=== PATIENT | female | born 1950 | race African-American/Black ===

== ENCOUNTER 2018-09-24 16:35 | Emergency (ER) | payer MEDICARE, MEDICAID ==
[~2018-09-24] VITALS: Ht 162.6 cm; Wt 119.0 kg
[~2018-09-24 16:35] MED LIST: CARV6.2548 PO; CHOL100044 PO; CLON0.3T PO; FURO40TA5 PO; HYDR12.54 PO; LEVO100T9 PO; LOSA50TA20 PO; MONT10TA21 PO; PARO-41 PO
[2018-09-24] MEDS ORDERED: ASPIRIN 81MG TABLET PO ONE (19:30)
[2018-09-24] MEDS ORDERED: MAGNESIUM/ALUMINUM HYDROXIDE/SIMETHICONE 30ML UDC PO ONE (19:30)
[2018-09-24] MEDS ORDERED: VISCOUS LIDOCAINE 2% 15 ML UDC PO ONE (19:30)
[2018-09-24 20:26] LABS: BASOPHILS % 0.9 % (0.0-2.0); EOSINOPHILS % 3.1 % (0.0-5.0); HEMATOCRIT. 33.5 % (36.0-48.0); HEMOGLOBIN. 10.7 g/dL (12.0-16.0); MEAN CORPUSCULAR HEMOGLOBIN 26.3 pg (28.0-32.0); MEAN CORPUSCULAR VOLUME 82.6 fL (81.0-99.0); MEAN PLATELET VOLUME 7.7 fl (7.4-10.4); MONOCYTES % 13.5 % (2.0-8.0); NEUTROPHILS % 57.5 % (40.0-76.0); PLATELET 226 x1000/uL (130-400); RED BLOOD CELL COUNT 4.05 mill/uL (4.2-5.4)
[2018-09-24 20:32] LABS: CHLORIDE 87 mEq/L (98-107)
[2018-09-24 23:21] VITALS: BP 123/71
== END 2018-09-24 23:47 | disposition home or self-care (01) ==
LOC: ER 16:35
DX: R07.2 Precordial pain (principal); E87.1 Hypo-osmolality and hyponatremia
CPT/HCPCS: 36415; 71045; 83880; 84484; 93005; 99284

== ENCOUNTER 2018-11-05 04:16 | Emergency (ER) | payer MEDICARE, MEDICAID ==
[~2018-11-05] VITALS: Ht 167.6 cm; Wt 109.0 kg
[2018-11-05 08:19] LABS: BASOPHILS % 0.7 % (0.0-2.0); EOSINOPHILS % 8.5 % (0.0-5.0); HEMATOCRIT. 37.3 % (36.0-48.0); HEMOGLOBIN. 11.8 g/dL (12.0-16.0); LYMPHOCYTES % 19.4 % (20.0-50.0); MEAN CORPUSCULAR HEMOGLOBIN 25.7 pg (28.0-32.0); MEAN PLATELET VOLUME 7.6 fl (7.4-10.4); NEUTROPHILS % 58.4 % (40.0-76.0); PLATELET 259 x1000/uL (130-400); RED BLOOD CELL COUNT 4.61 mill/uL (4.2-5.4); RED CELL DISTRIBUTION WIDTH 17.1 % (11.6-14.6)
[2018-11-05 08:23] LABS: CHLORIDE 86 mEq/L (98-107)
[2018-11-05 08:26] LABS: CLARITY URINE CLEAR (CLEAR); COLOR URINE YELLOW (YELLOW); KETONES URINE NEGATIVE (NEGATIVE); LEUKOCYTE ESTERASE URINE NEGATIVE (NEGATIVE); NITRITE URINE NEGATIVE (NEGATIVE); OCCULT BLOOD URINE NEGATIVE (NEGATIVE); PROTEIN URINE NEGATIVE (NEGATIVE); SPECIFIC GRAVITY URINE 1.005 (1.005-1.030); UROBILINOGEN URINE 0.2 E.U./dL (0.2-1.0)
[2018-11-05 08:29] LABS: ETHANOL BLOOD < 10 mg/dL
[2018-11-05 08:41] LABS: *BARBITURATES SCREEN URINE NEGATIVE (NEGATIVE); *BENZODIAZEPINES SCREEN URINE NEGATIVE (NEGATIVE); CANNABINOID URINE SCREEN NEGATIVE (NEGATIVE); OPIATES URINE SCREEN PRESUMTIVE POSITIVE (NEGATIVE); PHENCYCLIDINE URINE SCREEN NEGATIVE (NEGATIVE)
[2018-11-05 08:42] LABS: *AMPHETAMINES SCREEN URINE NEGATIVE (NEGATIVE); *COCAINE SCREEN URINE NEGATIVE (NEGATIVE)
[2018-11-05 08:44] LABS: METHADONE URINE SCREEN PRESUMTIVE POSITIVE (NEGATIVE)
[2018-11-05] MEDS: ALBUTEROL (0.083%) 2.5MG/3ML NEB HHN STA (10:10)
[2018-11-05] MEDS: IPRATROPIUM BROMIDE (0.02%) 0.5MG/2.5ML NEB HHN STA (10:10)
[2018-11-05] MEDS: POTASSIUM CHLORIDE 20MEQ TABLET SR PO ONE (10:49)
[2018-11-05] MEDS: ASPIRIN 81MG TABLET PO ONE (10:49)
[2018-11-05] MEDS: METHYLPREDNISOLONE SOD SUCC 125 MG/2 ML VIAL IV STA (10:49)
[2018-11-05 12:44] VITALS: BP 132/76
== END 2018-11-05 12:45 | disposition home or self-care (01) ==
LOC: ER 04:16
DX: K80.20 Calculus of gallbladder without cholecystitis without obstruction (principal); J44.1 Chronic obstructive pulmonary disease with (acute) exacerbation; Z96.659 Presence of unspecified artificial knee joint; Z98.51 Tubal ligation status; I11.0 Hypertensive heart disease with heart failure; I50.9 Heart failure, unspecified
CPT/HCPCS: 36415; 71045; 74176; 80053; 80305; 80320; 81003; 83690; 83880; 84484; 85025; 93005; 94644; 96374; 99285; J2930; J7611; G0480

== ENCOUNTER 2018-11-12 15:02 | Inpatient (IN) | payer MEDICARE, MEDICAID ==
[~2018-11-12] VITALS: Ht 162.6 cm; Wt 110.9 kg
[2018-11-12] MEDS ORDERED: CEFTRIAXONE 1 G PREMIX 50 ML IV ONE (15:45)
[2018-11-12] MEDS ORDERED: SODIUM CHLORIDE 0.9% 1000ML BAG (SEPSIS BOLUS) IV ONE (15:45)
[2018-11-12 16:13] LABS: BASOPHILS % 1.3 % (0.0-2.0); EOSINOPHILS % 7.5 % (0.0-5.0); HEMOGLOBIN. 11.2 g/dL (12.0-16.0); LYMPHOCYTES % 20.8 % (20.0-50.0); MEAN CORPUSCULAR HEMOGLOBIN 25.8 pg (28.0-32.0); MEAN CORPUSCULAR VOLUME 80.3 fL (81.0-99.0); MEAN PLATELET VOLUME 8.2 fl (7.4-10.4); MONOCYTES % 12.9 % (2.0-8.0); NEUTROPHILS % 57.5 % (40.0-76.0); PLATELET 236 x1000/uL (130-400); RED BLOOD CELL COUNT 4.36 mill/uL (4.2-5.4); RED CELL DISTRIBUTION WIDTH 17.1 % (11.6-14.6)
[2018-11-12 16:20] LABS: CHLORIDE 89 mEq/L (98-107)
[2018-11-12 16:22] LABS: PROTHROMBIN TIME 10.2 sec (9.6-11.0)
[2018-11-12 16:24] LABS: ETHANOL BLOOD < 10 mg/dL
[2018-11-12 17:14] LABS: CLARITY URINE CLEAR (CLEAR); COLOR URINE YELLOW (YELLOW); KETONES URINE NEGATIVE (NEGATIVE); LEUKOCYTE ESTERASE URINE NEGATIVE (NEGATIVE); NITRITE URINE NEGATIVE (NEGATIVE); OCCULT BLOOD URINE 2+ (NEGATIVE); PH URINE 7.5 (4.5-8.0); PROTEIN URINE NEGATIVE (NEGATIVE); SPECIFIC GRAVITY URINE 1.004 (1.005-1.030); UROBILINOGEN URINE 0.2 E.U./dL (0.2-1.0)
[2018-11-12 17:47] LABS: *BARBITURATES SCREEN URINE NEGATIVE (NEGATIVE); *BENZODIAZEPINES SCREEN URINE NEGATIVE (NEGATIVE)
[2018-11-12 17:49] LABS: *AMPHETAMINES SCREEN URINE NEGATIVE (NEGATIVE); *COCAINE SCREEN URINE NEGATIVE (NEGATIVE); CANNABINOID URINE SCREEN NEGATIVE (NEGATIVE); OPIATES URINE SCREEN PRESUMTIVE POSITIVE (NEGATIVE); PHENCYCLIDINE URINE SCREEN NEGATIVE (NEGATIVE)
[2018-11-12 17:50] LABS: METHADONE URINE SCREEN PRESUMTIVE POSITIVE (NEGATIVE)
[2018-11-12 20:10] VITALS: BP 116/67
[2018-11-12 20:30] VITALS: BP 116/67
[2018-11-12] MEDS ORDERED: DOCUSATE SODIUM 100MG CAPSULE PO PRN (21:45)
[2018-11-12] MEDS ORDERED: CLONIDINE 0.1MG TABLET PO PRN (21:45)
[2018-11-12] MEDS ORDERED: ONDANSETRON HCL 4MG/2ML INJ IV PRN (21:45)
[2018-11-12] MEDS ORDERED: NA PHOS,M-B/NA PHOS,DI-BA ENEMA 118ML PR PRN (21:45)
[2018-11-12] MEDS ORDERED: DIPHENHYDRAMINE 50MG/ML VIAL IV PRN (21:45)
[2018-11-12] MEDS ORDERED: POTASSIUM CHLORIDE 20MEQ TABLET SR PO SCH (22:15)
[2018-11-12] MEDS: ENOXAPARIN 40MG/0.4ML SYR SUBCUT SCH (22:20)
[2018-11-12] MEDS: ACETAMINOPHEN 325MG TABLET PO PRN (22:27)
[2018-11-13] VITALS: BP 123/60
[2018-11-13] MEDS ORDERED: BUSP-29 PO (01:03)
[2018-11-13] MEDS: DEXT 5%/0.45% NACL 1000ML 1,000 ML IV SCH ×3 (02:33→23:28)
[2018-11-13 04:00] VITALS: BP 130/85
[2018-11-13 07:50] LABS: BASOPHILS % 1.1 % (0.0-2.0); EOSINOPHILS % 9.3 % (0.0-5.0); HEMATOCRIT. 36.7 % (36.0-48.0); HEMOGLOBIN. 11.8 g/dL (12.0-16.0); LYMPHOCYTES % 23.6 % (20.0-50.0); MEAN CORPUSCULAR HEMOGLOBIN 25.9 pg (28.0-32.0); MEAN CORPUSCULAR VOLUME 80.6 fL (81.0-99.0); MEAN PLATELET VOLUME 8.1 fl (7.4-10.4); MONOCYTES % 12.1 % (2.0-8.0); NEUTROPHILS % 53.9 % (40.0-76.0); PLATELET 228 x1000/uL (130-400); RED BLOOD CELL COUNT 4.55 mill/uL (4.2-5.4)
[2018-11-13 08:00] VITALS: BP 103/46
[2018-11-13 08:04] LABS: CHLORIDE 92 mEq/L (98-107)
[2018-11-13 08:20] LABS: PHOSPHORUS 3.7 mg/dL (2.5-4.9)
[2018-11-13] MEDS: TRAMADOL 50MG TABLET PO PRN ×2 (09:22→20:38)
[2018-11-13 11:57] VITALS: BP 112/72
[2018-11-13] MEDS: ACETAMINOPHEN 325MG TABLET PO PRN (14:52)
[2018-11-13 16:00] VITALS: BP 132/74
[2018-11-13 16:54] LABS: FOLIC ACID (FOLATE) SERUM 11.2 ng/mL (>5.38)
[2018-11-13 20:00] VITALS: BP_SYST 148; BP_SYST 160; BP_SYST 97; BP_DIAS 64; BP_DIAS 88; BP_DIAS 90
[2018-11-13] MEDS ORDERED: RISPERIDONE 1MG TABLET PO SCH (21:00)
[2018-11-13] MEDS: ENOXAPARIN 40MG/0.4ML SYR SUBCUT SCH (23:28)
[2018-11-14] VITALS: BP 101/68
[2018-11-14 04:00] VITALS: BP 130/76
[2018-11-14 07:05] LABS: HEMATOCRIT. 33.2 % (36.0-48.0); HEMOGLOBIN. 10.9 g/dL (12.0-16.0); MEAN CORPUSCULAR HEMOGLOBIN 26.4 pg (28.0-32.0); MEAN CORPUSCULAR VOLUME 80.4 fL (81.0-99.0); MEAN PLATELET VOLUME 8.7 fl (7.4-10.4); PLATELET 215 x1000/uL (130-400); RED BLOOD CELL COUNT 4.13 mill/uL (4.2-5.4); RED CELL DISTRIBUTION WIDTH 16.9 % (11.6-14.6)
[2018-11-14 07:24] LABS: CHLORIDE 92 mEq/L (98-107)
[2018-11-14 08:00] VITALS: BP_SYST 128; BP_SYST 148; BP_SYST 165; BP_DIAS 110; BP_DIAS 86; BP_DIAS 87
[2018-11-14] MEDS ORDERED: RISPERIDONE 1MG TABLET PO SCH (09:00)
[2018-11-14] MEDS ORDERED: MELOXICAM 7.5MG TABLET PO SCH (09:00)
[2018-11-14 10:58] LABS: PLATELET ESTIMATE NORMAL
[2018-11-14 11:34] VITALS: BP 123/81
[2018-11-14 12:00] VITALS: BP 123/81
== END 2018-11-14 14:30 | disposition home health service (06) | DRG 73 ==
LOC: ER 15:02 → EDBEDREQ 17:15 → EDBEDREQTM 17:15 → 8WST 18:36 → ENRESERV 18:53
PROVIDERS: ADMIT Internal Medicine Nephrology; ATTEND Internal Medicine Nephrology
DX: G90.8 Other disorders of autonomic nervous system (principal); G92 Toxic encephalopathy; E87.1 Hypo-osmolality and hyponatremia; I50.20 Unspecified systolic (congestive) heart failure; F20.0 Paranoid schizophrenia; Z68.41 Body mass index [BMI] 40.0-44.9, adult; W18.30XA Fall on same level, unspecified, initial encounter; E87.6 Hypokalemia; J44.9 Chronic obstructive pulmonary disease, unspecified; E66.01 Morbid (severe) obesity due to excess calories; I73.9 Peripheral vascular disease, unspecified; G89.4 Chronic pain syndrome; S09.90XA Unspecified injury of head, initial encounter; H57.89 Other specified disorders of eye and adnexa; D64.9 Anemia, unspecified; S00.83XA Contusion of other part of head, initial encounter; R73.9 Hyperglycemia, unspecified; W18.39XA Other fall on same level, initial encounter; M15.9 Polyosteoarthritis, unspecified; I95.9 Hypotension, unspecified; I11.0 Hypertensive heart disease with heart failure; Z79.899 Other long term (current) drug therapy; Z87.891 Personal history of nicotine dependence; Z90.711 Acquired absence of uterus with remaining cervical stump; Y93.89 Activity, other specified; Y92.89 Other specified places as the place of occurrence of the external cause; Y99.8 Other external cause status; Z90.710 Acquired absence of both cervix and uterus
CPT/HCPCS: 36415; 71045; 72170; 80048; 80305; 80320; 82140; 82746; 82962; 83036; 83605; 83735; 84100; 84145; 84443; 84484; 93306; 93880; 93970; 97162; 97166; 97535; 99285; C1893; J1650; J7030; G0480

== ENCOUNTER 2018-11-20 01:55 | Emergency (ER) | payer MEDICARE, MEDICAID ==
[~2018-11-20] VITALS: Ht 172.7 cm; Wt 118.0 kg
[~2018-11-20 01:55] MED LIST changes: +BUSP-29 PO
[2018-11-20] MEDS: KETOROLAC 30MG/ML VIAL IM NR (04:37)
[2018-11-20] MEDS: ACETAMINOPHEN WITH CODEINE 300/30MG TABLET PO ONE (07:50)
[2018-11-20 11:20] VITALS: BP 140/88
== END 2018-11-20 11:59 | disposition home or self-care (01) ==
LOC: ER 01:55
DX: M25.512 Pain in left shoulder (principal); M19.012 Primary osteoarthritis, left shoulder; M19.90 Unspecified osteoarthritis, unspecified site
CPT/HCPCS: 73030; 96372; 99283; J1885

== ENCOUNTER 2018-12-19 08:44 | Emergency (ER) | payer MEDICARE, MEDICAID ==
[~2018-12-19] VITALS: Ht 170.2 cm; Wt 120.0 kg
[~2018-12-19 08:44] MED LIST changes: -CARV6.2548 PO; -CLON0.3T PO; -HYDR12.54 PO; -LOSA50TA20 PO
[2018-12-19 09:47] LABS: BASOPHILS % 1.4 % (0.0-2.0); HEMATOCRIT. 30.5 % (36.0-48.0); HEMOGLOBIN. 10.3 g/dL (12.0-16.0); LYMPHOCYTES % 16.4 % (20.0-50.0); MEAN CORPUSCULAR VOLUME 80.3 fL (81.0-99.0); MEAN PLATELET VOLUME 7.8 fl (7.4-10.4); MONOCYTES % 12.7 % (2.0-8.0); NEUTROPHILS % 63.5 % (40.0-76.0); PLATELET 285 x1000/uL (130-400); RED CELL DISTRIBUTION WIDTH 17.9 % (11.6-14.6)
[2018-12-19 09:56] LABS: CHLORIDE 98 mEq/L (98-107)
[2018-12-19 11:28] VITALS: BP 171/80
== END 2018-12-19 11:41 | disposition home or self-care (01) ==
LOC: ER 08:44
DX: M79.18 Myalgia, other site (principal); I11.0 Hypertensive heart disease with heart failure; I50.9 Heart failure, unspecified
CPT/HCPCS: 36415; 99283

== ENCOUNTER 2019-04-07 19:19 | Inpatient (IN) | payer MEDICARE, MEDICAID ==
[~2019-04-07] VITALS: Ht 165.1 cm; Wt 119.7 kg
[2019-04-07] MEDS ORDERED: IPRATROPIUM BROMIDE (0.02%) 0.5MG/2.5ML NEB HHN ONE (23:45)
[2019-04-07] MEDS ORDERED: ALBUTEROL (0.083%) 2.5MG/3ML NEB HHN ONE (23:45)
[2019-04-07] MEDS ORDERED: METHYLPREDNISOLONE SOD SUCC 125 MG/2 ML VIAL IV ONE (23:45)
[2019-04-08] VITALS (11 sets, daily range): BP systolic 104–149; BP diastolic 57–96
[2019-04-08 00:27] LABS: EOSINOPHILS % 3.8 % (0.0-5.0); HEMATOCRIT. 35.7 % (36.0-48.0); HEMOGLOBIN. 11.3 g/dL (12.0-16.0); LYMPHOCYTES % 19.8 % (20.0-50.0); MEAN CORPUSCULAR HEMOGLOBIN 25.3 pg (28.0-32.0); MEAN CORPUSCULAR VOLUME 79.6 fL (81.0-99.0); MEAN PLATELET VOLUME 7.9 fl (7.4-10.4); MONOCYTES % 12.5 % (2.0-8.0); NEUTROPHILS % 62.9 % (40.0-76.0); PLATELET 234 x1000/uL (130-400); RED BLOOD CELL COUNT 4.48 mill/uL (4.2-5.4); RED CELL DISTRIBUTION WIDTH 18.3 % (11.6-14.6)
[2019-04-08 00:29] LABS: CHLORIDE 90 mEq/L (98-107)
[2019-04-08 02:09] LABS: BG BASE EXCESS 10.6 mmol/L (-2.0-2.0); BG CARBOXYHEMOGLOBIN 0.7 % (0.5-1.5); BG DEOXYHEMOGLOBIN 7.9 % (0.0-5.0); BG FRACTION INSPIRED OXYGEN 36; BG HCO3 ACT 40.6 mmol/L (22.0-26.0); BG METHEMOGLOBIN 0.2 % (0.0-1.5); BG OXYHEMOGLOBIN 91.2 % (94.0-97.0); BG PCO2 88.3 mmHg (35.0-45.0); BG PO2 71.7 mmHg (75.0-100.0); BG SAMPLE SITE RIGHT RADIAL; BG TOTAL HEMOGLOBIN 12.1 g/dL (12.0-18.0); BG VENT MODE NASAL CANNULA
[2019-04-08] MEDS ORDERED: ALBUTEROL (0.083%) 2.5MG/3ML NEB HHN NR (02:15)
[2019-04-08] MEDS ORDERED: IPRATROPIUM BROMIDE (0.02%) 0.5MG/2.5ML NEB HHN NR (02:15)
[2019-04-08] MEDS ORDERED: NITROGLYCERIN OINT 1GM/INCH UDPKT TD NR (02:30)
[2019-04-08] MEDS ORDERED: MAGNESIUM 2 G PREMIX 50 ML IV NR (02:30)
[2019-04-08] MEDS ORDERED: CLONIDINE 0.2MG TABLET PO NR (02:30)
[2019-04-08] MEDS ORDERED: NITR9CAP PO (05:44)
[2019-04-08] MEDS ORDERED: METH10OR11 PO (05:44)
[2019-04-08] MEDS ORDERED: FURO-151 MT (05:44)
[2019-04-08] MEDS ORDERED: BUSP7.5T6 MT (05:44)
[2019-04-08] MEDS ORDERED: METO5TAB69 MT (05:44)
[2019-04-08] MEDS ORDERED: POTA10TA11 MT (05:44)
[2019-04-08] MEDS ORDERED: MIRT7.5T11 PO (05:44)
[2019-04-08] MEDS ORDERED: METHYLPREDNISOLONE SOD SUCC 40 MG/ML VIAL IV SCH (06:00)
[2019-04-08] MEDS ORDERED: POTASSIUM CHLORIDE 20MEQ TABLET SR PO NR (06:00)
[2019-04-08] MEDS ORDERED: IPRATROPIUM BROMIDE (0.02%) 0.5MG/2.5ML NEB HHN SCH (08:00)
[2019-04-08] MEDS ORDERED: CLONIDINE 0.1MG TABLET PO PRN (08:30)
[2019-04-08] MEDS ORDERED: ACETAMINOPHEN 325MG TABLET PO PRN (08:30)
[2019-04-08] MEDS ORDERED: ONDANSETRON HCL 4MG/2ML INJ IV PRN (08:30)
[2019-04-08 08:34] LABS: BASOPHILS % 0.3 % (0.0-2.0); EOSINOPHILS % 0.1 % (0.0-5.0); HEMATOCRIT. 33.1 % (36.0-48.0); HEMOGLOBIN. 10.5 g/dL (12.0-16.0); LYMPHOCYTES % 9.7 % (20.0-50.0); MEAN CORPUSCULAR HEMOGLOBIN 25.2 pg (28.0-32.0); MEAN CORPUSCULAR VOLUME 79.3 fL (81.0-99.0); MEAN PLATELET VOLUME 8.3 fl (7.4-10.4); MONOCYTES % 2.4 % (2.0-8.0); NEUTROPHILS % 87.5 % (40.0-76.0); PLATELET 222 x1000/uL (130-400); RED BLOOD CELL COUNT 4.17 mill/uL (4.2-5.4)
[2019-04-08 08:37] LABS: CHLORIDE 90 mEq/L (98-107)
[2019-04-08 08:39] LABS: BG BASE EXCESS 6.8 mmol/L (-2.0-2.0); BG BILEVEL POS AIRWAY PRESSURE 15/5; BG CARBOXYHEMOGLOBIN 0.4 % (0.5-1.5); BG DEOXYHEMOGLOBIN 4.2 % (0.0-5.0); BG FRACTION INSPIRED OXYGEN 40; BG HCO3 ACT 36.7 mmol/L (22.0-26.0); BG METHEMOGLOBIN 0.9 % (0.0-1.5); BG OXYGEN SATURATION 95.7 % (92.0-98.5); BG OXYHEMOGLOBIN 94.5 % (94.0-97.0); BG PCO2 81.1 mmHg (35.0-45.0); BG PH 7.273 (7.350-7.450); BG SAMPLE SITE RIGHT RADIAL; BG TOTAL HEMOGLOBIN 13.5 g/dL (12.0-18.0); BG VENT MODE MASK - BIPAP; BG VENT RATE 14 set
[2019-04-08] MEDS: LEVOTHYROXINE SODIUM 100MCG TABLET PO SCH ×2 (08:56→11:00)
[2019-04-08] MEDS: FUROSEMIDE 40MG/4ML VIAL IVP SCH (08:56)
[2019-04-08] MEDS: ENOXAPARIN 30MG/0.3ML SYR SUBCUT SCH ×2 (08:57→21:31)
[2019-04-08] MEDS: IPRATROPIUM/ALBUTEROL 0.5-3(2.5)MG/3ML NEB HHN SCH ×4 (09:19→20:23)
[2019-04-08] MEDS: DEXT 5% WATER + KCL 20MEQ/L 1,000 ML IV SCH (09:30)
[2019-04-08] MEDS: LEVOFLOXACIN 250MG PREMIX 50 ML IV SCH (10:00)
[2019-04-08] MEDS: BUSPIRONE HCL 5MG TABLET PO SCH ×2 (11:00→21:31)
[2019-04-08] MEDS: PAROXETINE HCL 10MG TABLET PO SCH (11:00)
[2019-04-08 12:57] LABS: BG BASE EXCESS 10.9 mmol/L (-2.0-2.0); BG BILEVEL POS AIRWAY PRESSURE ST=18/5; BG CARBOXYHEMOGLOBIN 0.3 % (0.5-1.5); BG DEOXYHEMOGLOBIN 9.7 % (0.0-5.0); BG FRACTION INSPIRED OXYGEN 35; BG HCO3 ACT 39.5 mmol/L (22.0-26.0); BG METHEMOGLOBIN 0.2 % (0.0-1.5); BG OXYGEN SATURATION 90.3 % (92.0-98.5); BG OXYHEMOGLOBIN 89.8 % (94.0-97.0); BG PCO2 78.7 mmHg (35.0-45.0); BG PH 7.318 (7.350-7.450); BG PO2 63.8 mmHg (75.0-100.0); BG PRESSURE SUPPORT 13; BG SAMPLE SITE RIGHT RADIAL; BG TOTAL HEMOGLOBIN 10.7 g/dL (12.0-18.0); BG VENT MODE MASK - BIPAP; BG VENT RATE 20 set
[2019-04-08 13:33] LABS: *AMPHETAMINES SCREEN URINE NEGATIVE (NEGATIVE); *BARBITURATES SCREEN URINE NEGATIVE (NEGATIVE); *BENZODIAZEPINES SCREEN URINE NEGATIVE (NEGATIVE); *COCAINE SCREEN URINE NEGATIVE (NEGATIVE); CANNABINOID URINE SCREEN NEGATIVE (NEGATIVE); PHENCYCLIDINE URINE SCREEN NEGATIVE (NEGATIVE)
[2019-04-08 13:34] LABS: OPIATES URINE SCREEN PRESUMTIVE POSITIVE (NEGATIVE)
[2019-04-08 13:39] LABS: METHADONE URINE SCREEN PRESUMTIVE POSITIVE (NEGATIVE)
[2019-04-08] MEDS: METHYLPREDNISOLONE SOD SUCC 40 MG/ML VIAL IV SCH ×2 (14:20→22:45)
[2019-04-08] MEDS: MONTELUKAST SODIUM 10MG TABLET PO SCH (17:00)
[2019-04-08] MEDS: PANTOPRAZOLE SODIUM 40 MG/VIAL IV SCH (21:30)
[2019-04-08] MEDS: AMLODIPINE 5MG TABLET PO SCH (21:31)
[2019-04-09] VITALS (12 sets, daily range): BP systolic 99–150; BP diastolic 51–85
[2019-04-09] MEDS: IPRATROPIUM/ALBUTEROL 0.5-3(2.5)MG/3ML NEB HHN SCH ×6 (00:02→20:09)
[2019-04-09] MEDS: HYDROCODONE/ACETAMINOPHEN 5/325MG TABLET PO PRN ×2 (03:42→21:46)
[2019-04-09] MEDS: METHYLPREDNISOLONE SOD SUCC 40 MG/ML VIAL IV SCH ×3 (06:26→21:46)
[2019-04-09] MEDS: LEVOTHYROXINE SODIUM 100MCG TABLET PO SCH (06:26)
[2019-04-09 07:03] LABS: HEMATOCRIT. 28.5 % (36.0-48.0); HEMOGLOBIN. 9.1 g/dL (12.0-16.0); MEAN CORPUSCULAR HEMOGLOBIN 25.2 pg (28.0-32.0); MEAN CORPUSCULAR VOLUME 78.5 fL (81.0-99.0); MEAN PLATELET VOLUME 8.4 fl (7.4-10.4); PLATELET 232 x1000/uL (130-400); RED BLOOD CELL COUNT 3.63 mill/uL (4.2-5.4); RED CELL DISTRIBUTION WIDTH 17.9 % (11.6-14.6)
[2019-04-09 07:29] LABS: CHLORIDE 89 mEq/L (98-107)
[2019-04-09] MEDS: PANTOPRAZOLE SODIUM 40 MG/VIAL IV SCH (08:23)
[2019-04-09] MEDS: PAROXETINE HCL 10MG TABLET PO SCH (08:23)
[2019-04-09] MEDS: BUSPIRONE HCL 5MG TABLET PO SCH ×2 (08:23→20:34)
[2019-04-09] MEDS: FUROSEMIDE 40MG/4ML VIAL IVP SCH (08:23)
[2019-04-09] MEDS: AMLODIPINE 5MG TABLET PO SCH ×2 (08:24→20:34)
[2019-04-09] MEDS: ENOXAPARIN 30MG/0.3ML SYR SUBCUT SCH ×2 (08:25→20:34)
[2019-04-09] MEDS: LEVOFLOXACIN 250MG PREMIX 50 ML IV SCH (10:30)
[2019-04-09 13:01] LABS: PLATELET ESTIMATE NORMAL
[2019-04-09] MEDS: METHADONE HCL 10MG TABLET PO SCH (13:44)
[2019-04-09] MEDS: DEXT 5% WATER + KCL 20MEQ/L 1,000 ML IV SCH (17:46)
[2019-04-09] MEDS: MONTELUKAST SODIUM 10MG TABLET PO SCH (17:46)
[2019-04-10] VITALS (12 sets, daily range): BP systolic 97–151; BP diastolic 60–97
[2019-04-10] MEDS: IPRATROPIUM/ALBUTEROL 0.5-3(2.5)MG/3ML NEB HHN SCH ×6 (00:24→20:28)
[2019-04-10] MEDS: HYDROCODONE/ACETAMINOPHEN 5/325MG TABLET PO PRN ×2 (04:56→21:36)
[2019-04-10] MEDS: LEVOTHYROXINE SODIUM 100MCG TABLET PO SCH (04:57)
[2019-04-10] MEDS: METHYLPREDNISOLONE SOD SUCC 40 MG/ML VIAL IV SCH ×3 (04:57→21:23)
[2019-04-10 06:27] LABS: HEMOGLOBIN. 10.3 g/dL (12.0-16.0); MEAN CORPUSCULAR HEMOGLOBIN 25.1 pg (28.0-32.0); MEAN CORPUSCULAR VOLUME 77.6 fL (81.0-99.0); MEAN PLATELET VOLUME 8.3 fl (7.4-10.4); PLATELET 260 x1000/uL (130-400); RED BLOOD CELL COUNT 4.13 mill/uL (4.2-5.4); RED CELL DISTRIBUTION WIDTH 18.1 % (11.6-14.6)
[2019-04-10 06:30] LABS: CHLORIDE 84 mEq/L (98-107)
[2019-04-10] MEDS: FUROSEMIDE 40MG/4ML VIAL IVP SCH (08:30)
[2019-04-10] MEDS: PAROXETINE HCL 10MG TABLET PO SCH (08:31)
[2019-04-10] MEDS: BUSPIRONE HCL 5MG TABLET PO SCH ×2 (08:31→21:24)
[2019-04-10] MEDS: FAMOTIDINE 20MG TABLET PO SCH ×2 (08:31→21:36)
[2019-04-10] MEDS: ENOXAPARIN 30MG/0.3ML SYR SUBCUT SCH ×2 (08:33→21:26)
[2019-04-10] MEDS: AMLODIPINE 5MG TABLET PO SCH ×2 (08:33→21:25)
[2019-04-10] MEDS: METHADONE HCL 10MG TABLET PO SCH (08:34)
[2019-04-10] MEDS ORDERED: LEVOFLOXACIN 500MG TABLET PO SCH (11:00)
[2019-04-10] MEDS ORDERED: TERBUTALINE SULFATE 1MG/ML VIAL SUBCUT NR (16:00)
[2019-04-10 16:58] LABS: PLATELET ESTIMATE NORMAL
[2019-04-10] MEDS: DEXT 5% WATER + KCL 20MEQ/L 1,000 ML IV SCH (17:36)
[2019-04-10] MEDS: MONTELUKAST SODIUM 10MG TABLET PO SCH (17:37)
[2019-04-11] VITALS (7 sets, daily range): BP systolic 102–150; BP diastolic 30–83
[2019-04-11] MEDS: IPRATROPIUM/ALBUTEROL 0.5-3(2.5)MG/3ML NEB HHN SCH ×3 (00:11→08:30)
[2019-04-11] MEDS: HYDROCODONE/ACETAMINOPHEN 5/325MG TABLET PO PRN (03:42)
[2019-04-11] MEDS: LEVOTHYROXINE SODIUM 100MCG TABLET PO SCH (05:31)
[2019-04-11] MEDS: METHYLPREDNISOLONE SOD SUCC 40 MG/ML VIAL IV SCH (05:31)
[2019-04-11] MEDS: DEXT 5% WATER + KCL 20MEQ/L 1,000 ML IV SCH (05:32)
[2019-04-11 06:18] LABS: CHLORIDE 83 mEq/L (98-107)
[2019-04-11 06:31] LABS: BASOPHILS % 0.1 % (0.0-2.0); HEMATOCRIT. 30.2 % (36.0-48.0); HEMOGLOBIN. 9.9 g/dL (12.0-16.0); LYMPHOCYTES % 7.1 % (20.0-50.0); MEAN CORPUSCULAR HEMOGLOBIN 25.4 pg (28.0-32.0); MEAN CORPUSCULAR VOLUME 77.1 fL (81.0-99.0); MEAN PLATELET VOLUME 8.1 fl (7.4-10.4); MONOCYTES % 5.3 % (2.0-8.0); NEUTROPHILS % 87.5 % (40.0-76.0); PLATELET 270 x1000/uL (130-400); RED BLOOD CELL COUNT 3.91 mill/uL (4.2-5.4); RED CELL DISTRIBUTION WIDTH 17.9 % (11.6-14.6)
[2019-04-11] MEDS: METHADONE HCL 10MG TABLET PO SCH (08:46)
[2019-04-11] MEDS: PAROXETINE HCL 10MG TABLET PO SCH (08:48)
[2019-04-11] MEDS: BUSPIRONE HCL 5MG TABLET PO SCH (08:48)
[2019-04-11] MEDS: ENOXAPARIN 30MG/0.3ML SYR SUBCUT SCH (08:48)
[2019-04-11] MEDS: AMLODIPINE 5MG TABLET PO SCH (08:52)
[2019-04-11] MEDS: FAMOTIDINE 20MG TABLET PO SCH (10:11)
[2019-04-12] MEDS ORDERED: PREDNISONE 20MG TABLET PO SCH (09:00)
== END 2019-04-11 12:25 | disposition home health service (06) | DRG 291 ==
LOC: ER 19:19 → 3WST 04-08 02:18 → EDBEDREQDT 04-08 02:24 → EDBEDREQSVC 04-08 02:24 → EDBEDREQ 04-08 02:24 → EDBEDREQTM 04-08 02:24 → ENRESERV 04-08 02:37
PROVIDERS: ADMIT Internal Medicine Geriatric Medicine; ATTEND Internal Medicine Geriatric Medicine
PROC: 5A09357 Assistance with Respiratory Ventilation, Less than 24 Consecutive Hours, Continuous Positive Airway Pressure (ICD-10-PCS; principal; 2019-04-08)
PROC: 5A09357 Assistance with Respiratory Ventilation, Less than 24 Consecutive Hours, Continuous Positive Airway Pressure (ICD-10-PCS; 2019-04-09)
PROC: 5A09357 Assistance with Respiratory Ventilation, Less than 24 Consecutive Hours, Continuous Positive Airway Pressure (ICD-10-PCS; 2019-04-10)
DX: I11.0 Hypertensive heart disease with heart failure (principal); J96.21 Acute and chronic respiratory failure with hypoxia; J96.22 Acute and chronic respiratory failure with hypercapnia; J44.1 Chronic obstructive pulmonary disease with (acute) exacerbation; J45.901 Unspecified asthma with (acute) exacerbation; E87.1 Hypo-osmolality and hyponatremia; Z68.41 Body mass index [BMI] 40.0-44.9, adult; E87.2 Acidosis; F20.0 Paranoid schizophrenia; I50.33 Acute on chronic diastolic (congestive) heart failure; E87.6 Hypokalemia; E03.9 Hypothyroidism, unspecified; E66.01 Morbid (severe) obesity due to excess calories; E78.5 Hyperlipidemia, unspecified; F11.90 Opioid use, unspecified, uncomplicated; F41.1 Generalized anxiety disorder; G47.33 Obstructive sleep apnea (adult) (pediatric); G89.4 Chronic pain syndrome; I07.9 Rheumatic tricuspid valve disease, unspecified; I16.0 Hypertensive urgency; R73.9 Hyperglycemia, unspecified; I73.9 Peripheral vascular disease, unspecified; L85.3 Xerosis cutis; T50.2X5A Adverse effect of carbonic-anhydrase inhibitors, benzothiadiazides and other diuretics, initial encounter; Y92.89 Other specified places as the place of occurrence of the external cause; Z79.899 Other long term (current) drug therapy; Z91.14 Patient's other noncompliance with medication regimen; Z99.81 Dependence on supplemental oxygen; Z71.3 Dietary counseling and surveillance
CPT/HCPCS: 36415; 36600; 71045; 80048; 80061; 80305; 82375; 82805; 83036; 83735; 83880; 84443; 84484; 93005; 93306; 94640; 94660; 96374; 97162; 99291; C1893; C9113; J1650; J1940; J1956; J2920; J2930; J3105; J3475; J7060; J7070; J7611; J7620

== ENCOUNTER 2019-12-13 17:50 | Emergency (ER) | payer OTHER, MEDICAID ==
[~2019-12-13] VITALS: Ht 157.5 cm; Wt 114.0 kg
[~2019-12-13 17:50] MED LIST changes: -BUSP-29 PO; +BUSP10TA4 MT; +BUSP10TA4 PO; +METH10OR11 PO; +METO5TAB7 MT; +MIRT7.5T11 MT; +MIRT7.5T11 PO; +ONDA4TAB5 MT; +POTA10TA11 MT
[2019-12-13 19:48] LABS: BASOPHILS % 0.7 % (0.0-2.0); EOSINOPHILS % 0.6 % (0.0-5.0); HEMATOCRIT. 32.6 % (36.0-48.0); HEMOGLOBIN. 10.5 g/dL (12.0-16.0); LYMPHOCYTES % 11.1 % (20.0-50.0); MEAN CORPUSCULAR HEMOGLOBIN 25.2 pg (28.0-32.0); MEAN CORPUSCULAR VOLUME 77.9 fL (81.0-99.0); MEAN PLATELET VOLUME 8.1 fl (7.4-10.4); MONOCYTES % 10.6 % (2.0-8.0); PLATELET 220 x1000/uL (130-400); RED BLOOD CELL COUNT 4.19 mill/uL (4.2-5.4)
[2019-12-13 19:53] LABS: CHLORIDE 87 mEq/L (98-107)
[2019-12-13 19:56] LABS: PROTHROMBIN TIME 10.9 sec (9.6-11.0)
[2019-12-13 19:57] LABS: ETHANOL BLOOD < 10 mg/dL
[2019-12-13] MEDS ORDERED: POTASSIUM CHLORIDE 20MEQ TABLET SR PO ONE (20:15)
[2019-12-13 21:24] LABS: CLARITY URINE CLEAR (CLEAR); COLOR URINE YELLOW (YELLOW); KETONES URINE NEGATIVE (NEGATIVE); LEUKOCYTE ESTERASE URINE NEGATIVE (NEGATIVE); NITRITE URINE NEGATIVE (NEGATIVE); OCCULT BLOOD URINE NEGATIVE (NEGATIVE); PH URINE 6.5 (4.5-8.0); PROTEIN URINE NEGATIVE (NEGATIVE); SPECIFIC GRAVITY URINE 1.011 (1.005-1.030); UROBILINOGEN URINE 0.2 E.U./dL (0.2-1.0)
[2019-12-13 21:50] LABS: *AMPHETAMINES SCREEN URINE NEGATIVE (NEGATIVE); *BARBITURATES SCREEN URINE NEGATIVE (NEGATIVE); *BENZODIAZEPINES SCREEN URINE NEGATIVE (NEGATIVE)
[2019-12-13 21:51] LABS: *COCAINE SCREEN URINE NEGATIVE (NEGATIVE); CANNABINOID URINE SCREEN NEGATIVE (NEGATIVE); OPIATES URINE SCREEN NEGATIVE (NEGATIVE); PHENCYCLIDINE URINE SCREEN NEGATIVE (NEGATIVE)
[2019-12-13 21:56] LABS: METHADONE URINE SCREEN PRESUMTIVE POSITIVE (NEGATIVE)
[2019-12-13 23:03] VITALS: BP 140/72
== END 2019-12-13 23:04 | disposition home or self-care (01) ==
LOC: ER 17:50 → CANBEDREQ 12-14 03:09
DX: R10.0 Acute abdomen (principal); M54.5 Low back pain; R51 Headache; E87.8 Other disorders of electrolyte and fluid balance, not elsewhere classified; J44.9 Chronic obstructive pulmonary disease, unspecified; K59.00 Constipation, unspecified; I10 Essential (primary) hypertension; K76.0 Fatty (change of) liver, not elsewhere classified; E78.00 Pure hypercholesterolemia, unspecified
CPT/HCPCS: 36415; 74176; 80053; 80305; 80320; 81003; 85025; 99284; G0480

== ENCOUNTER 2020-02-07 15:02 | Emergency (ER) | payer OTHER, MEDICAID ==
[~2020-02-07] VITALS: Ht 165.1 cm; Wt 110.0 kg
[~2020-02-07 15:02] MED LIST changes: -BUSP10TA4 MT; +CLON1PAT11 TD; +IPRA3AMP9 HHN; +LEVO500T2 PO; +LOSA25TA3 PO; -METH10OR11 PO; -METO5TAB7 MT; -MIRT7.5T11 MT; -ONDA4TAB5 MT; +PANT40VI IV
[2020-02-07 18:01] LABS: CHLORIDE 102 mEq/L (98-107)
[2020-02-07 18:04] LABS: PROTHROMBIN TIME 10.9 sec (9.6-11.0)
[2020-02-07 18:06] LABS: BASOPHILS % 0.6 % (0.0-2.0); EOSINOPHILS % 6.4 % (0.0-5.0); HEMATOCRIT. 30.3 % (36.0-48.0); HEMOGLOBIN. 9.5 g/dL (12.0-16.0); LYMPHOCYTES % 17.7 % (20.0-50.0); MEAN CORPUSCULAR HEMOGLOBIN 24.9 pg (28.0-32.0); MEAN CORPUSCULAR VOLUME 79.3 fL (81.0-99.0); MEAN PLATELET VOLUME 8.4 fl (7.4-10.4); MONOCYTES % 11.2 % (2.0-8.0); NEUTROPHILS % 64.1 % (40.0-76.0); PLATELET 286 x1000/uL (130-400); RED BLOOD CELL COUNT 3.82 mill/uL (4.2-5.4); RED CELL DISTRIBUTION WIDTH 19.6 % (11.6-14.6)
[2020-02-07 22:04] VITALS: BP 140/90
== END 2020-02-07 22:04 | disposition home or self-care (01) ==
LOC: ER 15:02
DX: T85.898A Other specified complication of other internal prosthetic devices, implants and grafts, initial encounter (principal); Y83.8 Other surgical procedures as the cause of abnormal reaction of the patient, or of later complication, without mention of misadventure at the time of the procedure; Y92.9 Unspecified place or not applicable; K80.50 Calculus of bile duct without cholangitis or cholecystitis without obstruction; J45.909 Unspecified asthma, uncomplicated; I11.0 Hypertensive heart disease with heart failure; I50.9 Heart failure, unspecified; J44.9 Chronic obstructive pulmonary disease, unspecified; E78.00 Pure hypercholesterolemia, unspecified
CPT/HCPCS: 36415; 71045; 76705; 80053; 84484; 85025; 93005; 99285

== ENCOUNTER 2020-05-22 10:26 | Inpatient (IN) | payer MEDICARE, MEDICAID ==
[~2020-05-22] VITALS: Ht 162.6 cm; Wt 129.3 kg
[2020-05-22] MEDS ORDERED: FUROSEMIDE 40MG/4ML VIAL IV ONE (12:00)
[2020-05-22] MEDS ORDERED: NITROGLYCERIN OINT 1GM/INCH UDPKT TD ONE (12:00)
[2020-05-22 13:13] LABS: BG BASE EXCESS 11.3 mmol/L (-2.0-2.0); BG CARBOXYHEMOGLOBIN 0.6 % (0.5-1.5); BG DEOXYHEMOGLOBIN 14.2 % (0.0-5.0); BG FRACTION INSPIRED OXYGEN 28; BG HCO3 ACT 39.5 mmol/L (22.0-26.0); BG METHEMOGLOBIN 0.2 % (0.0-1.5); BG OXYGEN SATURATION 85.7 % (92.0-98.5); BG PCO2 73.2 mmHg (35.0-45.0); BG PO2 52.3 mmHg (75.0-100.0); BG TOTAL HEMOGLOBIN 11.7 g/dL (12.0-18.0); BG VENT MODE NASAL CANNULA
[2020-05-22 13:15] LABS: *AMPHETAMINES SCREEN URINE NEGATIVE (NEGATIVE)
[2020-05-22 13:16] LABS: *BARBITURATES SCREEN URINE NEGATIVE (NEGATIVE); *BENZODIAZEPINES SCREEN URINE NEGATIVE (NEGATIVE); *COCAINE SCREEN URINE NEGATIVE (NEGATIVE); METHADONE URINE SCREEN PRESUMTIVE POSITIVE (NEGATIVE); OPIATES URINE SCREEN PRESUMTIVE POSITIVE (NEGATIVE)
[2020-05-22 13:18] LABS: PHENCYCLIDINE URINE SCREEN NEGATIVE (NEGATIVE)
[2020-05-22 13:19] LABS: BASOPHILS % 0.8 % (0.0-2.0); EOSINOPHILS % 6.7 % (0.0-5.0); HEMOGLOBIN. 10.9 g/dL (12.0-16.0); LYMPHOCYTES % 14.9 % (20.0-50.0); MEAN CORPUSCULAR HEMOGLOBIN 26.8 pg (28.0-32.0); MEAN CORPUSCULAR VOLUME 83.8 fL (81.0-99.0); NEUTROPHILS % 68.6 % (40.0-76.0); PLATELET 220 x1000/uL (130-400); RED BLOOD CELL COUNT 4.06 mill/uL (4.2-5.4); RED CELL DISTRIBUTION WIDTH 16.7 % (11.6-14.6)
[2020-05-22 13:26] LABS: CANNABINOID URINE SCREEN NEGATIVE (NEGATIVE)
[2020-05-22 13:27] LABS: CHLORIDE 95 mEq/L (98-107)
[2020-05-22 13:31] LABS: ETHANOL BLOOD < 10 mg/dL; PROTHROMBIN TIME 10.6 sec (9.6-11.0)
[2020-05-22] MEDS ORDERED: ONDANSETRON HCL 4MG/2ML INJ IV PRN (17:00)
[2020-05-22] MEDS ORDERED: GUAIFENESIN 200MG/10ML SUGAR FREE UDC PO PRN (17:00)
[2020-05-22] MEDS ORDERED: IPRATROPIUM/ALBUTEROL 0.5-3(2.5)MG/3ML NEB HHN PRN (17:00)
[2020-05-22] MEDS ORDERED: ACETAMINOPHEN 325MG TABLET PO PRN (17:00)
[2020-05-22] MEDS ORDERED: AZITHROMYCIN 500MG in DEXTROSE 5% WATER 250ML IV NR (18:00)
[2020-05-22] MEDS: MONTELUKAST SODIUM 10MG TABLET PO SCH (19:26)
[2020-05-22] MEDS: BUSPIRONE HCL 10MG TABLET PO SCH (19:26)
[2020-05-22] MEDS: IPRATROPIUM/ALBUTEROL 0.5-3(2.5)MG/3ML NEB HHN SCH (20:01)
[2020-05-22 22:00] VITALS: BP 132/97
[2020-05-22 23:44] LABS: CREATINE KINASE MB FRACTION 6.5 ng/mL (0.5-3.6)
[2020-05-23] VITALS (12 sets, daily range): BP systolic 107–159; BP diastolic 69–100
[2020-05-23] MEDS: METHYLPREDNISOLONE SOD SUCC 40 MG/ML VIAL IV SCH ×3 (00:41→17:46)
[2020-05-23] MEDS: ENOXAPARIN 30MG/0.3ML SYR SUBCUT SCH ×2 (06:22→17:46)
[2020-05-23 08:45] LABS: BASOPHILS % 0.7 % (0.0-2.0); EOSINOPHILS % 0.4 % (0.0-5.0); HEMATOCRIT. 36.1 % (36.0-48.0); HEMOGLOBIN. 11.4 g/dL (12.0-16.0); MEAN CORPUSCULAR HEMOGLOBIN 26.2 pg (28.0-32.0); MEAN PLATELET VOLUME 8.5 fl (7.4-10.4); MONOCYTES % 2.1 % (2.0-8.0); NEUTROPHILS % 83.8 % (40.0-76.0); PLATELET 232 x1000/uL (130-400); RED BLOOD CELL COUNT 4.35 mill/uL (4.2-5.4)
[2020-05-23] MEDS ORDERED: METHYLPREDNISOLONE SOD SUCC 125 MG/2 ML VIAL IV SCH (08:45)
[2020-05-23 08:49] LABS: BG BASE EXCESS 10.1 mmol/L (-2.0-2.0); BG CARBOXYHEMOGLOBIN 0.9 % (0.5-1.5); BG FRACTION INSPIRED OXYGEN 28; BG HCO3 ACT 37.4 mmol/L (22.0-26.0); BG METHEMOGLOBIN 0.2 % (0.0-1.5); BG OXYGEN SATURATION 93.9 % (92.0-98.5); BG OXYHEMOGLOBIN 92.9 % (94.0-97.0); BG PCO2 64.3 mmHg (35.0-45.0); BG PH 7.383 (7.350-7.450); BG PO2 69.1 mmHg (75.0-100.0); BG SAMPLE SITE RIGHT RADIAL; BG TOTAL HEMOGLOBIN 12.1 g/dL (12.0-18.0); BG VENT MODE NASAL CANNULA
[2020-05-23 08:56] LABS: CHLORIDE 94 mEq/L (98-107)
[2020-05-23 09:06] LABS: CREATINE KINASE MB FRACTION 5.1 ng/mL (0.5-3.6)
[2020-05-23] MEDS: BUSPIRONE HCL 10MG TABLET PO SCH ×2 (09:15→17:45)
[2020-05-23] MEDS: LOSARTAN POTASSIUM 25 MG TABLET PO SCH (09:15)
[2020-05-23] MEDS: DOCUSATE SODIUM 250MG CAPSULE PO SCH (09:16)
[2020-05-23] MEDS: CHOLECALCIFEROL (D3) 1000 UNIT TABLET PO SCH (09:17)
[2020-05-23] MEDS: POTASSIUM CHLORIDE 10MEQ TABLET SR PO SCH (09:18)
[2020-05-23] MEDS: LEVOTHYROXINE SODIUM 100MCG TABLET PO SCH (09:18)
[2020-05-23] MEDS: FUROSEMIDE 40MG/4ML VIAL IVP SCH (09:19)
[2020-05-23] MEDS: PANTOPRAZOLE SODIUM 40 MG/VIAL IV SCH (09:20)
[2020-05-23] MEDS: METOLAZONE 5MG TABLET PO SCH (09:22)
[2020-05-23] MEDS: BUDESONIDE 0.5MG/2ML NEB HHN SCH (09:48)
[2020-05-23] MEDS: IPRATROPIUM/ALBUTEROL 0.5-3(2.5)MG/3ML NEB HHN SCH ×3 (09:49→21:08)
[2020-05-23] MEDS: MONTELUKAST SODIUM 10MG TABLET PO SCH (17:45)
[2020-05-23] MEDS ORDERED: AZITHROMYCIN 250 MG in DEXT 5% WATER 250 ML IV SCH ×2 (18:00→20:00)
[2020-05-24] VITALS (7 sets, daily range): BP systolic 117–156; BP diastolic 68–89
[2020-05-24] MEDS: IPRATROPIUM/ALBUTEROL 0.5-3(2.5)MG/3ML NEB HHN SCH ×3 (00:37→08:19)
[2020-05-24] MEDS: METHYLPREDNISOLONE SOD SUCC 40 MG/ML VIAL IV SCH ×2 (00:57→08:50)
[2020-05-24 05:39] LABS: CHLORIDE 93 mEq/L (98-107)
[2020-05-24] MEDS: ENOXAPARIN 30MG/0.3ML SYR SUBCUT SCH (05:44)
[2020-05-24 05:59] LABS: HEMATOCRIT. 30.9 % (36.0-48.0); MEAN CORPUSCULAR HEMOGLOBIN 26.5 pg (28.0-32.0); MEAN PLATELET VOLUME 8.8 fl (7.4-10.4); PLATELET 236 x1000/uL (130-400); RED BLOOD CELL COUNT 3.77 mill/uL (4.2-5.4); RED CELL DISTRIBUTION WIDTH 16.2 % (11.6-14.6)
[2020-05-24] MEDS: BUDESONIDE 0.5MG/2ML NEB HHN SCH (08:19)
[2020-05-24] MEDS: POTASSIUM CHLORIDE 10MEQ TABLET SR PO SCH (08:48)
[2020-05-24] MEDS: LEVOTHYROXINE SODIUM 100MCG TABLET PO SCH (08:48)
[2020-05-24] MEDS: DOCUSATE SODIUM 250MG CAPSULE PO SCH (08:48)
[2020-05-24] MEDS: LOSARTAN POTASSIUM 25 MG TABLET PO SCH (08:49)
[2020-05-24] MEDS: BUSPIRONE HCL 10MG TABLET PO SCH (08:49)
[2020-05-24] MEDS: CHOLECALCIFEROL (D3) 1000 UNIT TABLET PO SCH (08:49)
[2020-05-24] MEDS: METOLAZONE 5MG TABLET PO SCH (08:49)
[2020-05-24] MEDS: PANTOPRAZOLE SODIUM 40 MG/VIAL IV SCH (08:50)
[2020-05-24] MEDS: FUROSEMIDE 40MG/4ML VIAL IVP SCH (08:50)
[2020-05-24] MEDS ORDERED: AZIT250T PO (09:40)
[2020-05-24] MEDS ORDERED: METO5TAB7 PO (09:40)
[2020-05-24] MEDS ORDERED: PHENOL/SODIUM PHENOLATE 1.4% SRPAY 177ML MM ONE (10:30)
[2020-05-24 11:04] LABS: PLATELET ESTIMATE NORMAL
[2020-05-24] MEDS ORDERED: THROAT LOZENGES-BENZOCAINE/MENTH/CETYLPYRD CL LOZENGES MM PRN (12:00)
[2020-05-29] MEDS ORDERED: CLONIDINE HCL 0.2MG/24HR PATCH TD SCH (09:00)
== END 2020-05-24 15:22 | disposition home or self-care (01) | DRG 291 ==
LOC: ER 10:26 → 5EST 16:01 → EDBEDREQTM 16:21 → EDBEDREQSVC 17:32 → EDBEDREQ 20:23 → ENRESERV 20:26 → 5EST 23:07
PROVIDERS: ADMIT Internal Medicine Geriatric Medicine; ATTEND Internal Medicine Geriatric Medicine
PROC: 5A09357 Assistance with Respiratory Ventilation, Less than 24 Consecutive Hours, Continuous Positive Airway Pressure (ICD-10-PCS; principal; 2020-05-22)
DX: I11.0 Hypertensive heart disease with heart failure (principal); J96.21 Acute and chronic respiratory failure with hypoxia; J96.22 Acute and chronic respiratory failure with hypercapnia; J44.1 Chronic obstructive pulmonary disease with (acute) exacerbation; E87.2 Acidosis; Z68.42 Body mass index [BMI] 45.0-49.9, adult; I50.43 Acute on chronic combined systolic (congestive) and diastolic (congestive) heart failure; K59.09 Other constipation; I87.2 Venous insufficiency (chronic) (peripheral); M48.00 Spinal stenosis, site unspecified; D72.829 Elevated white blood cell count, unspecified; D63.8 Anemia in other chronic diseases classified elsewhere; E66.01 Morbid (severe) obesity due to excess calories; M19.90 Unspecified osteoarthritis, unspecified site; I25.10 Atherosclerotic heart disease of native coronary artery without angina pectoris; E03.9 Hypothyroidism, unspecified; B18.2 Chronic viral hepatitis C; F31.9 Bipolar disorder, unspecified; Z96.651 Presence of right artificial knee joint; F41.1 Generalized anxiety disorder; I27.21 Secondary pulmonary arterial hypertension; G47.33 Obstructive sleep apnea (adult) (pediatric); G89.4 Chronic pain syndrome; I87.8 Other specified disorders of veins; Z86.73 Personal history of transient ischemic attack (TIA), and cerebral infarction without residual deficits; Z90.49 Acquired absence of other specified parts of digestive tract; Z87.01 Personal history of pneumonia (recurrent); Z99.81 Dependence on supplemental oxygen; Z79.899 Other long term (current) drug therapy; Z79.891 Long term (current) use of opiate analgesic; Z87.891 Personal history of nicotine dependence
CPT/HCPCS: 36415; 36600; 71045; 80048; 80053; 80305; 80320; 82375; 82553; 82805; 83735; 83880; 84443; 84484; 85025; 93005; 93306; 93970; 94640; 94660; 97162; 99285; C9113; J0456; J1650; J1940; J2920; J2930; J7060; J7626; G0480

== ENCOUNTER 2020-10-27 09:16 | Inpatient (IN) | payer MEDICARE, MEDICAID ==
[~2020-10-27] VITALS: Ht 170.2 cm; Wt 131.7 kg
[~2020-10-27 09:16] MED LIST changes: +AZIT250T PO; -LEVO500T2 PO; +METO5TAB7 PO
[2020-10-27] MEDS ORDERED: ALBUTEROL (0.083%) 2.5MG/3ML NEB HHN STA (09:40)
[2020-10-27] MEDS ORDERED: IPRATROPIUM BROMIDE (0.02%) 0.5MG/2.5ML NEB HHN STA (09:40)
[2020-10-27] MEDS ORDERED: METHYLPREDNISOLONE SOD SUCC 125 MG/2 ML VIAL IV STA (09:40)
[2020-10-27 10:18] LABS: EOSINOPHILS % 9.2 % (0.0-5.0); HEMATOCRIT. 32.7 % (36.0-48.0); HEMOGLOBIN. 10.4 g/dL (12.0-16.0); LYMPHOCYTES % 13.6 % (20.0-50.0); MEAN PLATELET VOLUME 8.2 fl (7.4-10.4); MONOCYTES % 10.9 % (2.0-8.0); NEUTROPHILS % 65.3 % (40.0-76.0); PLATELET 278 x1000/uL (130-400); RED BLOOD CELL COUNT 3.99 mill/uL (4.2-5.4)
[2020-10-27 10:21] LABS: CHLORIDE 91 mEq/L (98-107)
[2020-10-27] MEDS ORDERED: ENOXAPARIN 40MG/0.4ML SYR SUBCUT SCH (12:00)
[2020-10-27] MEDS ORDERED: ACETAMINOPHEN 325MG TABLET PO PRN (12:00)
[2020-10-27] MEDS ORDERED: MAGNESIUM/ALUMINUM HYDROXIDE/SIMETHICONE 30ML UDC PO PRN (12:00)
[2020-10-27] MEDS ORDERED: ONDANSETRON HCL 4MG/2ML INJ IV PRN (12:00)
[2020-10-27] MEDS ORDERED: FUROSEMIDE 40MG/4ML VIAL IVP NR (12:00)
[2020-10-27] MEDS ORDERED: CLONIDINE 0.1MG TABLET PO PRN (12:00)
[2020-10-27] MEDS ORDERED: DOCUSATE SODIUM SUGAR FREE 100MG/10ML UDC PO NR (12:00)
[2020-10-27 12:23] LABS: BG BASE EXCESS 15.9 mmol/L (-2.0-2.0); BG CARBOXYHEMOGLOBIN 0.8 % (0.5-1.5); BG DEOXYHEMOGLOBIN 2.5 % (0.0-5.0); BG FRACTION INSPIRED OXYGEN 32; BG HCO3 ACT 44.1 mmol/L (22.0-26.0); BG METHEMOGLOBIN 0.2 % (0.0-1.5); BG OXYGEN SATURATION 97.5 % (92.0-98.5); BG OXYHEMOGLOBIN 96.5 % (94.0-97.0); BG PCO2 74.8 mmHg (35.0-45.0); BG PH 7.388 (7.350-7.450); BG PO2 95.7 mmHg (75.0-100.0); BG SAMPLE SITE RIGHT RADIAL; BG TOTAL HEMOGLOBIN 11.5 g/dL (12.0-18.0); BG VENT MODE NASAL CANNULA
[2020-10-27 12:37] LABS: CLARITY URINE CLEAR (CLEAR); COLOR URINE YELLOW (YELLOW); KETONES URINE NEGATIVE (NEGATIVE); LEUKOCYTE ESTERASE URINE NEGATIVE (NEGATIVE); NITRITE URINE NEGATIVE (NEGATIVE); OCCULT BLOOD URINE NEGATIVE (NEGATIVE); PROTEIN URINE NEGATIVE (NEGATIVE); SPECIFIC GRAVITY URINE 1.011 (1.005-1.030); UROBILINOGEN URINE 0.2 E.U./dL (0.2-1.0)
[2020-10-27] MEDS ORDERED: IPRATROPIUM/ALBUTEROL 0.5-3(2.5)MG/3ML NEB HHN SCH (13:00)
[2020-10-27] MEDS: ENOXAPARIN 30MG/0.3ML SYR SUBCUT SCH (13:19)
[2020-10-27 14:08] LABS: *AMPHETAMINES SCREEN URINE NEGATIVE (NEGATIVE)
[2020-10-27 14:09] LABS: *BARBITURATES SCREEN URINE NEGATIVE (NEGATIVE); *BENZODIAZEPINES SCREEN URINE NEGATIVE (NEGATIVE); *COCAINE SCREEN URINE NEGATIVE (NEGATIVE); CANNABINOID URINE SCREEN NEGATIVE (NEGATIVE); METHADONE URINE SCREEN NEGATIVE (NEGATIVE); PHENCYCLIDINE URINE SCREEN NEGATIVE (NEGATIVE)
[2020-10-27 14:10] LABS: OPIATES URINE SCREEN PRESUMTIVE POSITIVE (NEGATIVE)
[2020-10-27 14:50] LABS: CREATINE KINASE MB FRACTION 2.6 ng/mL (0.5-3.6)
[2020-10-27] MEDS ORDERED: ALBUTEROL (0.5%) 2.5MG/0.5ML NEB HHN PRN (15:45)
[2020-10-27] MEDS: METHYLPREDNISOLONE SOD SUCC 40 MG/ML VIAL IV SCH (16:27)
[2020-10-27] MEDS: BUSPIRONE HCL 5MG TABLET PO SCH (16:27)
[2020-10-27] MEDS ORDERED: AZITHROMYCIN 500MG in DEXTROSE 5% WATER 250ML IV NR (17:00)
[2020-10-27] MEDS ORDERED: ZOLPIDEM TARTRATE 5MG TABLET PO PRN (21:00)
[2020-10-27 23:05] LABS: CREATINE KINASE MB FRACTION 2.8 ng/mL (0.5-3.6)
[2020-10-28] VITALS (11 sets, daily range): BP systolic 107–151; BP diastolic 54–93
[2020-10-28] MEDS: IPRATROPIUM/ALBUTEROL 0.5-3(2.5)MG/3ML NEB HHN SCH ×5 (00:26→20:12)
[2020-10-28] MEDS ORDERED: GABA-532 MT (01:03)
[2020-10-28] MEDS ORDERED: LIDO1ADH71 (01:03)
[2020-10-28] MEDS ORDERED: CEPH250C2 MT (01:03)
[2020-10-28] MEDS ORDERED: MONT10TA32 MT (01:03)
[2020-10-28] MEDS ORDERED: POTA10TA11 MT (01:03)
[2020-10-28] MEDS ORDERED: BENZ100C86 MT (01:03)
[2020-10-28] MEDS ORDERED: DICL100G31 TP (01:03)
[2020-10-28] MEDS ORDERED: MIRT15TA6 PO (01:03)
[2020-10-28] MEDS ORDERED: LINA290C PO (01:03)
[2020-10-28] MEDS ORDERED: LOSA25TA26 MT (01:03)
[2020-10-28] MEDS ORDERED: LORA10TA60 PO (01:03)
[2020-10-28] MEDS ORDERED: METO5TAB7 MT (01:03)
[2020-10-28] MEDS ORDERED: FAMO20TA8 PO (01:03)
[2020-10-28] MEDS: METHYLPREDNISOLONE SOD SUCC 40 MG/ML VIAL IV SCH ×3 (01:33→18:27)
[2020-10-28] MEDS: ENOXAPARIN 30MG/0.3ML SYR SUBCUT SCH ×2 (01:33→14:40)
[2020-10-28 06:17] LABS: CHLORIDE 89 mEq/L (98-107)
[2020-10-28 06:21] LABS: HEMATOCRIT. 33.4 % (36.0-48.0); HEMOGLOBIN. 10.6 g/dL (12.0-16.0); MEAN CORPUSCULAR HEMOGLOBIN 26.1 pg (28.0-32.0); MEAN CORPUSCULAR VOLUME 82.3 fL (81.0-99.0); MEAN PLATELET VOLUME 8.4 fl (7.4-10.4); PLATELET 256 x1000/uL (130-400); RED BLOOD CELL COUNT 4.06 mill/uL (4.2-5.4); RED CELL DISTRIBUTION WIDTH 16.9 % (11.6-14.6)
[2020-10-28] MEDS ORDERED: POTASSIUM CHLORIDE 20MEQ/PACKET PO NR (09:00)
[2020-10-28] MEDS ORDERED: MONTELUKAST SODIUM 10MG TABLET PO SCH (09:00)
[2020-10-28] MEDS ORDERED: LACTULOSE 20G/30ML UDC PO SCH (09:15)
[2020-10-28] MEDS: FUROSEMIDE 40MG/4ML VIAL IVP SCH (09:30)
[2020-10-28] MEDS: LEVOTHYROXINE SODIUM 100MCG TABLET PO SCH (09:30)
[2020-10-28] MEDS: CHOLECALCIFEROL (D3) 1000 UNIT TABLET PO SCH (09:31)
[2020-10-28] MEDS: LOSARTAN POTASSIUM 25 MG TABLET PO SCH (09:31)
[2020-10-28] MEDS: SPIRONOLACTONE 25MG TABLET PO SCH (09:33)
[2020-10-28] MEDS: HYDROCODONE/ACETAMINOPHEN 5/325MG TABLET PO PRN (09:35)
[2020-10-28 11:32] LABS: BG BASE EXCESS 17.5 mmol/L (-2.0-2.0); BG CARBOXYHEMOGLOBIN 0.2 % (0.5-1.5); BG DEOXYHEMOGLOBIN 9.6 % (0.0-5.0); BG HCO3 ACT 44.7 mmol/L (22.0-26.0); BG METHEMOGLOBIN 0.3 % (0.0-1.5); BG OXYGEN SATURATION 90.4 % (92.0-98.5); BG OXYHEMOGLOBIN 89.9 % (94.0-97.0); BG PCO2 66.5 mmHg (35.0-45.0); BG PH 7.445 (7.350-7.450); BG PO2 59.7 mmHg (75.0-100.0); BG TOTAL HEMOGLOBIN 11.7 g/dL (12.0-18.0)
[2020-10-28 13:43] LABS: PLATELET ESTIMATE NORMAL
[2020-10-28] MEDS: DOCUSATE SODIUM SUGAR FREE 100MG/10ML UDC PO SCH (14:39)
[2020-10-28] MEDS ORDERED: AZITHROMYCIN 250 MG in DEXT 5% WATER 250 ML IV SCH (17:00)
[2020-10-28] MEDS ORDERED: AZITHROMYCIN 500 MG TABLET PO NR (17:45)
[2020-10-28] MEDS: BUSPIRONE HCL 5MG TABLET PO SCH (18:27)
[2020-10-28] MEDS: ZINC OXIDE 20% OINT 30GM TOP PRN (18:29)
[2020-10-28] MEDS: MONTELUKAST SODIUM 10MG TABLET PO SCH (18:29)
[2020-10-28] MEDS: CEFTRIAXONE 1,000 MG in DEXTROSE 5% WATER 50 ML IV SCH (20:42)
[2020-10-29] MEDS: IPRATROPIUM/ALBUTEROL 0.5-3(2.5)MG/3ML NEB HHN SCH ×6 (00:47→20:22)
[2020-10-29 06:50] LABS: BASOPHILS % 0.3 % (0.0-2.0); EOSINOPHILS % 0.1 % (0.0-5.0); HEMATOCRIT. 33.8 % (36.0-48.0); HEMOGLOBIN. 10.4 g/dL (12.0-16.0); LYMPHOCYTES % 7.4 % (20.0-50.0); MEAN CORPUSCULAR HEMOGLOBIN 25.6 pg (28.0-32.0); MEAN CORPUSCULAR VOLUME 83.2 fL (81.0-99.0); MEAN PLATELET VOLUME 7.9 fl (7.4-10.4); MONOCYTES % 4.7 % (2.0-8.0); NEUTROPHILS % 87.5 % (40.0-76.0); PLATELET 253 x1000/uL (130-400); RED BLOOD CELL COUNT 4.07 mill/uL (4.2-5.4); RED CELL DISTRIBUTION WIDTH 17.2 % (11.6-14.6)
[2020-10-29 06:56] LABS: CHLORIDE 92 mEq/L (98-107)
[2020-10-29 08:00] VITALS: BP 142/64
[2020-10-29] MEDS: LEVOTHYROXINE SODIUM 100MCG TABLET PO SCH (08:24)
[2020-10-29] MEDS: SPIRONOLACTONE 25MG TABLET PO SCH (08:24)
[2020-10-29] MEDS: METHYLPREDNISOLONE SOD SUCC 40 MG/ML VIAL IV SCH ×2 (08:24)
[2020-10-29] MEDS: LOSARTAN POTASSIUM 25 MG TABLET PO SCH (08:24)
[2020-10-29] MEDS: CHOLECALCIFEROL (D3) 1000 UNIT TABLET PO SCH (08:24)
[2020-10-29] MEDS: FUROSEMIDE 40MG/4ML VIAL IVP SCH (08:24)
[2020-10-29] MEDS: BUSPIRONE HCL 5MG TABLET PO SCH ×2 (08:24→17:29)
[2020-10-29] MEDS: AZITHROMYCIN 500 MG TABLET PO SCH (08:25)
[2020-10-29] MEDS: HYDROCODONE/ACETAMINOPHEN 5/325MG TABLET PO PRN ×2 (08:35→17:29)
[2020-10-29 10:00] VITALS: BP 148/67
[2020-10-29] MEDS: ZINC OXIDE 20% OINT 30GM TOP PRN (11:50)
[2020-10-29] MEDS: DOCUSATE SODIUM SUGAR FREE 100MG/10ML UDC PO SCH (11:51)
[2020-10-29] MEDS: ENOXAPARIN 30MG/0.3ML SYR SUBCUT SCH ×2 (11:51)
[2020-10-29 12:00] VITALS: BP 125/66
[2020-10-29 14:00] VITALS: BP 112/57
[2020-10-29 16:00] VITALS: BP 145/81
[2020-10-29] MEDS: MONTELUKAST SODIUM 10MG TABLET PO SCH (17:29)
[2020-10-29 18:00] VITALS: BP 136/64
[2020-10-29] MEDS: CEFTRIAXONE 1,000 MG in DEXTROSE 5% WATER 50 ML IV SCH (19:52)
[2020-10-29] MEDS: ENOXAPARIN 40MG/0.4ML SYR SUBCUT SCH (20:05)
[2020-10-29] MEDS ORDERED: METHYLPREDNISOLONE SOD SUCC 40 MG/ML VIAL IV SCH (21:00)
[2020-10-30] VITALS (10 sets, daily range): BP systolic 117–139; BP diastolic 54–71
[2020-10-30] MEDS: IPRATROPIUM/ALBUTEROL 0.5-3(2.5)MG/3ML NEB HHN SCH ×4 (01:01→12:37)
[2020-10-30] MEDS: HYDROCODONE/ACETAMINOPHEN 5/325MG TABLET PO PRN (03:32)
[2020-10-30] MEDS: ZINC OXIDE 20% OINT 30GM TOP PRN (03:33)
[2020-10-30 07:42] LABS: CHLORIDE 91 mEq/L (98-107)
[2020-10-30 07:44] LABS: BASOPHILS % 0.4 % (0.0-2.0); HEMATOCRIT. 31.9 % (36.0-48.0); HEMOGLOBIN. 10.1 g/dL (12.0-16.0); MEAN CORPUSCULAR HEMOGLOBIN 26.5 pg (28.0-32.0); MEAN CORPUSCULAR VOLUME 83.6 fL (81.0-99.0); MEAN PLATELET VOLUME 8.6 fl (7.4-10.4); NEUTROPHILS % 80.6 % (40.0-76.0); PLATELET 246 x1000/uL (130-400); RED BLOOD CELL COUNT 3.82 mill/uL (4.2-5.4); RED CELL DISTRIBUTION WIDTH 16.9 % (11.6-14.6)
[2020-10-30] MEDS: LEVOTHYROXINE SODIUM 100MCG TABLET PO SCH (08:45)
[2020-10-30] MEDS: BUSPIRONE HCL 5MG TABLET PO SCH ×2 (08:45→17:48)
[2020-10-30] MEDS: CHOLECALCIFEROL (D3) 1000 UNIT TABLET PO SCH (08:45)
[2020-10-30] MEDS ORDERED: MAGNESIUM 2 G PREMIX 50 ML IV PRN (08:45)
[2020-10-30] MEDS: DOCUSATE SODIUM SUGAR FREE 100MG/10ML UDC PO SCH (08:45)
[2020-10-30] MEDS: ENOXAPARIN 40MG/0.4ML SYR SUBCUT SCH (08:45)
[2020-10-30] MEDS: LOSARTAN POTASSIUM 25 MG TABLET PO SCH (08:45)
[2020-10-30] MEDS: SPIRONOLACTONE 25MG TABLET PO SCH (08:45)
[2020-10-30] MEDS: AZITHROMYCIN 500 MG TABLET PO SCH (08:45)
[2020-10-30] MEDS: FUROSEMIDE 40MG/4ML VIAL IVP SCH (08:46)
[2020-10-30] MEDS: POTASSIUM CHLORIDE 20MEQ TABLET SR PO SCH ×2 (08:49→17:00)
[2020-10-30] MEDS ORDERED: PREDNISONE 20MG TABLET PO SCH (09:00)
[2020-10-30] MEDS ORDERED: POTASSIUM CHLORIDE INJ 40 MEQ in DEXT 5% WATER 250 ML IV NR (10:00)
[2020-10-30] MEDS: MONTELUKAST SODIUM 10MG TABLET PO SCH (17:50)
[2020-11-03] MEDS ORDERED: CLONIDINE HCL 0.2MG/24HR PATCH TD SCH (09:00)
== END 2020-10-30 21:23 | disposition home health service (06) | DRG 291 ==
LOC: ER 09:24 → 5EST 11:25 → EDBEDREQ 11:35 → EDBEDREQSVC 12:46 → EDBEDREQ 12:46 → EDBEDREQTM 12:46 → ENRESERV 20:22
PROVIDERS: ADMIT Internal Medicine Geriatric Medicine; ATTEND Internal Medicine Geriatric Medicine
PROC: 5A09357 Assistance with Respiratory Ventilation, Less than 24 Consecutive Hours, Continuous Positive Airway Pressure (ICD-10-PCS; principal; 2020-10-27)
DX: I11.0 Hypertensive heart disease with heart failure (principal); J96.22 Acute and chronic respiratory failure with hypercapnia; J44.1 Chronic obstructive pulmonary disease with (acute) exacerbation; E87.2 Acidosis; F11.20 Opioid dependence, uncomplicated; E46 Unspecified protein-calorie malnutrition; Z68.42 Body mass index [BMI] 45.0-49.9, adult; I50.43 Acute on chronic combined systolic (congestive) and diastolic (congestive) heart failure; I87.2 Venous insufficiency (chronic) (peripheral); E66.01 Morbid (severe) obesity due to excess calories; E03.9 Hypothyroidism, unspecified; F31.9 Bipolar disorder, unspecified; E78.00 Pure hypercholesterolemia, unspecified; G47.33 Obstructive sleep apnea (adult) (pediatric); G89.4 Chronic pain syndrome; M19.90 Unspecified osteoarthritis, unspecified site; M48.00 Spinal stenosis, site unspecified; E87.6 Hypokalemia; R73.9 Hyperglycemia, unspecified; Z91.19 Patient's noncompliance with other medical treatment and regimen; Z99.81 Dependence on supplemental oxygen; Z90.49 Acquired absence of other specified parts of digestive tract
CPT/HCPCS: 36415; 36600; 71045; 80048; 80053; 80061; 80305; 81003; 82375; 82553; 82805; 83036; 83735; 83880; 84132; 84443; 84484; 85025; 93005; 93306; 93970; 94640; 94660; 97162; 99291; C1893; J0456; J0696; J1650; J1940; J2920; J2930; J3480; J7060; J7512